=== PATIENT | female | born 1950 | race Two or more races ===

== ENCOUNTER 2016-09-25 20:18 | Emergency (ER) | payer OTHER, MEDICAID ==
[~2016-09-25] VITALS: Ht 152.4 cm; Wt 122.5 kg
[~2016-09-25 20:18] MED LIST: ATEN-60 PO; DOCU-94 PO; FUR40T; OMEP20CA5 PO; PAR20T PO
[2016-09-25 21:00] VITALS: BP 115/70
== END 2016-09-25 21:50 | disposition home or self-care (01) ==
LOC: EDBD 20:18 → ER 20:29
DX: S43.005A Unspecified dislocation of left shoulder joint, initial encounter (principal); J44.9 Chronic obstructive pulmonary disease, unspecified; I11.0 Hypertensive heart disease with heart failure; I50.9 Heart failure, unspecified; I48.91 Unspecified atrial fibrillation; I26.99 Other pulmonary embolism without acute cor pulmonale; Z98.890 Other specified postprocedural states; Z88.1 Allergy status to other antibiotic agents; Z79.899 Other long term (current) drug therapy; X58.XXXA Exposure to other specified factors, initial encounter; Y93.89 Activity, other specified; Y99.8 Other external cause status; Y92.89 Other specified places as the place of occurrence of the external cause
CPT/HCPCS: 23650; 73030; 94761

== ENCOUNTER 2016-12-12 21:52 | Emergency (ER) | payer OTHER, MEDICAID ==
[~2016-12-12] VITALS: Ht 152.4 cm; Wt 122.5 kg
[2016-12-12 23:30] VITALS: BP 128/66
[2016-12-12] MEDS ORDERED: HYDROmorphone HCL 2 MG/ML VL ONE (23:32)
[2016-12-12] MEDS ORDERED: ONDANSETRON HCL 4 MG/2 ML VIAL ONE (23:32)
[2016-12-12] MEDS ORDERED: ETOMIDATE (2MG/ML) 20ML VIAL IV ONE (23:40)
[2016-12-12] MEDS ORDERED: ONDANSETRON HCL 4 MG/2 ML VIAL IV ONE (23:45)
[2016-12-12] MEDS ORDERED: HYDROmorphone HCL 2 MG/ML VL IV ONE (23:45)
[2016-12-13] MEDS ORDERED: ETOMIDATE (2MG/ML) 20ML VIAL IV ONE (00:45)
== END 2016-12-13 01:14 | disposition home or self-care (01) ==
LOC: ER 21:54
DX: S43.005A Unspecified dislocation of left shoulder joint, initial encounter (principal); M21.922 Unspecified acquired deformity of left upper arm; I11.0 Hypertensive heart disease with heart failure; I48.91 Unspecified atrial fibrillation; I50.9 Heart failure, unspecified; J44.9 Chronic obstructive pulmonary disease, unspecified; X58.XXXA Exposure to other specified factors, initial encounter; Y93.89 Activity, other specified; Y99.8 Other external cause status; Y92.89 Other specified places as the place of occurrence of the external cause; Z86.711 Personal history of pulmonary embolism
CPT/HCPCS: 23650; 73020; 73030; 93005; 96374; 96375; 99152; 99153; 99285; J1170; J2405; 96372

== ENCOUNTER 2016-12-18 23:52 | Emergency (ER) | payer OTHER, MEDICAID ==
[~2016-12-18] VITALS: Ht 154.9 cm; Wt 122.5 kg
[2016-12-19] MEDS ORDERED: ALBUTEROL SULF 2.5 MG/0.5ML(0.5%) NEB SOLN NEB ONE (01:00)
[2016-12-19] MEDS ORDERED: IPRATROPIUM BROM 0.5 MG/2.5ML INH SOL NEB ONE (01:00)
[2016-12-19 01:29] LABS: Basophils # (auto) 0.1 uL; Basophils % (auto) 0.8 % (0.0-2.0); DEFINITIVE VIEW TRANSMISSION; Eosinophils # (auto) 0.3 uL; Eosinophils % (auto) 3.2 % (0.0-7.0); Hematocrit 38.7 % (36.0-46.0); Lymphocytes % (auto) 11.3 % (10.0-50.0); Mean Corpuscular Hemoglobin 26.7 pg (28.0-32.0); Mean Corpuscular Hgb Conc. 31.1 g/dL (32.0-36.0); Mean Corpuscular Volume 85.9 fL (80.0-100.0); Mean Platelet Volume 8.9 fL (7.4-10.4); Monocytes # (auto) 0.9 uL; Monocytes % (auto) 9.3 % (0.0-12.0); Neutrophils # (auto) 6.9 uL; Neutrophils % (auto) 75.4 % (37.0-80.0); Platelet Count (auto) 302 10^3/uL (140-450); Red Cell Distribution Width 17.1 % (11.6-16.0); White Blood Cell 9.2 10^3/uL (4.4-10.8)
[2016-12-19 01:50] LABS: Albumin 2.4 g/dL (3.4-5.0); Amylase 46 U/L (25-115); Anion Gap 9 (5-15); Aspartate Aminotransferase 15 U/L (15-37); BUN/Creatinine Ratio 25.8; Blood Urea Nitrogen 25 mg/dL (7-18); Calcium 8.6 mg/dL (8.5-10.1); Carbon Dioxide 31 mmol/L (21-32); Chloride 102 mmol/L (98-107); GFR African American 74 mL/min; GFR Non-African American 61 mL/min; Glucose 176 mg/dL (74-106); Magnesium 2.1 mg/dL (1.6-2.6); Potassium 4.4 mmol/L (3.5-5.1); Sodium 142 mmol/L (136-145)
[2016-12-19 01:51] LABS: INR 0.95 (0.9-1.15); Partial Thromboplastin Time 24.7 sec (22.64-33.71); Prothrombin Time 10.3 sec (9.37-12.3)
[2016-12-19 01:55] LABS: Alkaline Phosphatase 64 U/L (45-117); Bilirubin, Total 0.2 mg/dL (0.2-1.0); Total Protein 6.8 g/dL (6.4-8.2)
[2016-12-19] MEDS ORDERED: DONNATAL 5ml ORAL Elix (BELLADONNA ALK-PHENOBARB) PO ONE (02:45)
[2016-12-19] MEDS ORDERED: ALUM & MAG HYDROX-SIMETH LIQ(MAALOX) 30 ML PO ONE (02:45)
[2016-12-19] MEDS ORDERED: LIDOCAINE VISCOUS 2% 15ML UD PO ONE (02:45)
[2016-12-19] MEDS ORDERED: FUROSEMIDE 40 MG/4 ML VIAL ONE (05:00)
[2016-12-19] MEDS ORDERED: FUROSEMIDE 40 MG/4 ML VIAL IV ONE (05:00)
[2016-12-19 06:09] VITALS: BP 103/80
== END 2016-12-19 06:14 | disposition home or self-care (01) ==
LOC: ER 23:52
DX: J96.10 Chronic respiratory failure, unspecified whether with hypoxia or hypercapnia (principal); R10.13 Epigastric pain; I48.91 Unspecified atrial fibrillation; J44.9 Chronic obstructive pulmonary disease, unspecified; I11.0 Hypertensive heart disease with heart failure; I50.9 Heart failure, unspecified; Z88.1 Allergy status to other antibiotic agents; Z90.49 Acquired absence of other specified parts of digestive tract
CPT/HCPCS: 36415; 71010; 80053; 82150; 83605; 83690; 83735; 84484; 84702; 85025; 85610; 85730; 87040; 93005; 94640; 96374; 99285; J1940